=== PATIENT | male | born 1995 | race Caucasian/White ===

== ENCOUNTER 2018-07-11 07:14 | Emergency (ER) | payer OTHER | END 2018-07-11 08:21 | disposition home or self-care (01) | LOC: M ED 07:14 | DX: S61.411A Laceration without foreign body of right hand, initial encounter (principal); W26.8XXA Contact with other sharp object(s), not elsewhere classified, initial encounter; Y92.098 Other place in other non-institutional residence as the place of occurrence of the external cause; Z88.0 Allergy status to penicillin | CPT/HCPCS: 12001 ==